=== PATIENT | male | born 1975 | race Caucasian/White ===

== ENCOUNTER → 2019-01-12 | Outpatient (CLI) | payer OTHER ==
--- NOTE | 2019-01-12 11:33 | RADIOLOGY REPORT (SQ) ---
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 TECHNIQUE: Post IV contrasted scanning from skull base through lung apices with review of bone, soft tissue and lung windows. Reconstructed coronal and sagittal MPR images reviewed. All images stored on PACS. All CT scanners at this facility use dose modulation, iterative reconstruction, and/or weight based d osing when appropriate to reduce radiation dose to as low as reasonably achievable (ALARA). [facility]: Dose Right [facility]: CareDose [facility]: Dose Right [facility]: Teradose 4D [facility]: Zuberance CONTRAST TYPE AND DOSE: contrast/concentration: Isovue 350.00 mg/ml; Total Contrast Delivered: 75.0 ml; Total Saline Delivered: 55.0 ml RENAL FUNCTION: None required. The patient is less than 50 years old. RADIATION DOSE: 21.3 mGy LIMITATIONS: None. FINDINGS: In the midline nasopharynx, a soft tissue density nodule is present measuring 1.2 cm trans verse by 1.1 cm AP x 0.9 cm craniocaudad. Just to the right of midline at the mass, there is a small air bubble along its superficial surface the has the appearance of the tonsillar crypts. This nodul e is likely focally enlarged lymphoid tissue. Overall, the adenoidal soft tissues measure 18 mm in thickness on sagittal image 61. There are multiple scattered cervical lymph nodes all less than 8 mm short axis. SKULL BASE: Intact. MAJOR SALIVARY GLANDS: No solid or cystic masses. No inflammatory changes. LYMPHADENOPATHY: Multiple scattered cervical lymph nodes all less than 8 mm short axis MUCOSAL MASSES OR ASYMMETRY: Midline nasopharyngeal nodule as above. Otherwise, no mucosal masses or asymmetry are identified. LARYNX/CORDS: No abnormal findings. VASCULAR STRUCTURES: The major vessels are patent. LUNG APICES: Clear. BONES: Minimal posterior disc bulge and bony spurring at C5-6 without significant central or foramina l encroachment THYROID: Normal size. No masses. PARANASAL SINUSES: Clear. OTHER: No other significant finding. IMPRESSION: Midline nasopharyngeal probable lymphoid tissue nodule measuring 1.2 x 1.1 x 0.9 cm size . TECHNICAL DOCUMENTATION: JOB ID: [id number] Quality ID # [id number]: Final reports with documentation of one or more dose reduction techniques (e.g., Au tomated exposure control, adjustment of the mA and/or kV according to patient size, use of iterative reconstruction technique) 2010 [employer]- All Rights Reserved Reading location - IP/workstation name: [email or web address]
== END ==
LOC: RAD 09:38
PROVIDERS: ATTEND Otolaryngology
DX: J39.2 Other diseases of pharynx (principal); M46.02 Spinal enthesopathy, cervical region
CPT/HCPCS: 70491

== ENCOUNTER 2019-03-30 10:26 | Day surgery (SDC) | payer OTHER ==
[~2019-03-30 10:26] MED LIST: ACETAMINOPHEN 1,000 MG/100 ML RTUPB IV ONE; AMPICILLIN SODIUM 2 GM in NORMAL SALINE 100 ML IV PRN; DEXAMETHASONE SOD PHOS INJ 10 MG/1 ML VIAL ONE; FENTANYL CITRATE INJ/PF 100 MCG/2 ML AMPUL ONE; MIDAZOLAM 2 MG/2 ML INJ ONE; ONDANSETRON HCL INJ/PF 4 MG/2 ML SDV ONE; PROPOFOL INJ 200 MG/20 ML VIAL IV ONE; SUCCINYLCHOLINE CHLORIDE INJ 200 MG/10 ML VIAL ONE
[2019-03-30] MEDS ORDERED: OXYMETAZOLINE HCL 0.05% NASAL SPRAY 15 ML BOTTLE ONE (11:11)
[2019-03-30] MEDS ORDERED: LIDOCAINE 2%/EPINEPHRINE INJ 1.7 ML CARTRIDGE ONE (11:11)
--- NOTE | 2019-03-30 12:26 | Operative Report ---
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 Informed consent was obtained from the patient. Pre-operative diagnosis: 1. Nasopharyngeal mass 2. Chronic tonsillitis Post operative diagnosis: Same as above Procedure:. 1. Adenotonsillectomy 2. Biopsy nasopharyngeal mass Surgeon: Ebenezer Monique MD, FACS, [facility] Anesthesia: General via Endotrachreal intubation Procedure: After receiving informed consent from the parents of the patient, the patient was brought to the operating room and placed supine on the operating table. After successful induction and intubation by anesthesia the patient was turned 90 degrees and placed in Trendelenburg. A shoulder roll was placed along with a head drape. A McIvor mouth gag was ins erted atraumatically into the oral cavity and opened up. The soft palate was palpated and found to be normal. Red rubber catheters were inserted down each nasal cavity and brought out to elevate the soft palate. A mirror was used to views the nasopharynx and a nasopharyngeal mass was identified in the superior aspect, it appeared to be consistent with an adenoid.. Using the [employer]raEchos System a biopsy of nasopharyngeal mass and adenoidectomy was performed. A tissue trap was placed on the suction machine to catch the nasopharyngeal tissue. This tissue was then sent for permanent histopathological analysis. Hemostasis was obtained using the same system. A pack was then placed into the nasopharynx. Attention was then directed to the tonsils. The right tonsil was grasped with tenaculum and retracted medially. Using Bovie electrocautery the right tonsil was dissected free from its tonsillar fossa . Hemostasis was obtained using suction Bovie electrocautery. A similar procedure was performed on the left side. Both tonsils were removed. The pack was removed from the nasopharynx and the bed was found to be dry. The oral pharynx and the oral cavity were irrigated with copious amounts of normal saline, without evidence of bleeding. An orogastric tube was inserted into the stomach to aspirate gastric contents. The McIvor mouthgag was then released and reopened, the surgical bed was dry without evidence of bleeding. The McIvor mouth gag along with the red catheters were removed from the patient. The patient was then returned back to anesthesia who successfully extubated the patient. Estimated blood loss: 30 mL's Fluids: 800 mL The patient was then transported to the Post Anesthesia Care Unit in stable condition with spontaneous respiration. No complication.
== END 2019-03-30 13:32 | disposition home or self-care (01) ==
LOC: SC 10:26
PROVIDERS: ATTEND Otolaryngology
DX: J35.8 Other chronic diseases of tonsils and adenoids (principal); J39.2 Other diseases of pharynx; R19.6 Halitosis; J35.01 Chronic tonsillitis; J45.909 Unspecified asthma, uncomplicated; Z91.040 Latex allergy status; Z79.51 Long term (current) use of inhaled steroids; Z79.899 Other long term (current) drug therapy
CPT/HCPCS: 88304 ×2; 88305 ×2; 00170; 42821; J0290; J2250; J3490 ×2; J3010; J0330; J2405; J7050; J2704; J1100; J0131; 170